=== PATIENT | male | born 1980 | race African-American/Black ===

== ENCOUNTER 2017-10-03 09:02 | Emergency (ER) | payer MEDICARE, MEDICAID ==
[~2017-10-03] VITALS: Ht 177.8 cm; Wt 80.0 kg
[2017-10-03] MEDS ORDERED: ALBU18HF2 IH (09:17)
[2017-10-03] MEDS ORDERED: ALBU6.7H INH (09:17)
[2017-10-03] MEDS ORDERED: ACETAMINOPHEN WITH CODEINE 300/30MG TABLET PO ONE (11:15)
[2017-10-03 12:06] VITALS: BP 132/90
== END 2017-10-03 12:14 | disposition home or self-care (01) ==
LOC: ER 10:12
DX: S16.1XXA Strain of muscle, fascia and tendon at neck level, initial encounter (principal); M79.622 Pain in left upper arm; J45.909 Unspecified asthma, uncomplicated; V43.62XA Car passenger injured in collision with other type car in traffic accident, initial encounter; Y93.89 Activity, other specified; Y92.488 Other paved roadways as the place of occurrence of the external cause
CPT/HCPCS: 99283